=== PATIENT | female | born 1990 | race African-American/Black ===

== ENCOUNTER 2018-08-12 08:52 | Inpatient (IN) ==
[2018-08-12] MEDS ORDERED: BUTORPHANOL 2 MG/ML VIAL IV PRN (09:01)
[2018-08-12] MEDS ORDERED: BUTORPHANOL 1 MG/ML VIAL IV PRN (09:01)
[2018-08-12] MEDS ORDERED: ONDANSETRON 4 MG/2 ML VIAL IV PRN (09:01)
[2018-08-12 09:21] LABS: Basophils % 0.2 % (0.0-0.8); Eosinophils % 0.3 % (0.00-10.9); Hematocrit 32.6 VOL% (35.7-47.0); Immature Granulocytes % 0.7 %; Immature Granulocytes Absolute 0.07 #; Lymphocytes # 1.8 10*3/uL (1.4-4.0); Lymphocytes % 18.3 % (21.3-54.2); Mean Corpuscular HGB Conc 30.7 GM/DL (32-36); Mean Corpuscular Volume 79.1 FL (87-102); Mean Platelet Volume 12.9 FL (9.6-12.0); Monocytes % 5.5 % (1.7-12.7); Platelet Count 213 T/CUMM (130-400); Red Blood Count 4.12 MC/CUMM (3.8-5.5); Red Cell Distribution Width 16.5 % (9.3-17.3); White Blood Count 9.6 T/CUMM (4-12)
[2018-08-12] MEDS: LACTATED RINGERS 1,000 ML IV SCH ×2 (09:25→12:39)
[2018-08-12] MEDS ORDERED: OXYTOCIN/LR 20 UNIT/1,000 ML BAG IV SCH (09:30)
[2018-08-12 09:32] LABS: INR 0.9; PT Patient Result 9.5 SECS; Partial Thromboplastin Time 30.3 SECS (0-40)
[2018-08-12 09:46] LABS: Alanine Aminotransferase 12 U/L (13-56); Albumin 2.7 G/DL (3.4-5.0); Alkaline Phosphatase 219 U/L (45-117); Aspartate Amino Transferase 11 U/L (0-37); Bilirubin,Total < 0.39 MG/DL (0.2-1.0); Blood Urea Nitrogen 7 MG/DL (7-18); Calcium 8.7 MG/DL (8.5-10.1); Glucose 101 MG/DL (74-106); Osmolality,Calculated 270.8 MOS/KG (273-304); Total Protein 7.1 G/DL (6.4-8.3); Uric Acid 3.6 MG/DL (2.6-6.0)
[2018-08-12] MEDS ORDERED: PENICILLIN G POTASSIUM INJ 6,000,000 UNIT in SODIUM CHLORIDE 0.9% 100 ML IV ONE (12:00)
[2018-08-12] MEDS ORDERED: PROMETHAZINE 25 MG/1 ML VIAL IM ONE (12:01)
[2018-08-12] MEDS ORDERED: LACTATED RINGERS 1,000 ML IV ONE (12:01)
[2018-08-12] MEDS ORDERED: hydrOXYzine HCL 25 MG/1 ML VIAL IM PRN ×2 (12:01→19:16)
[2018-08-12] MEDS ORDERED: NALOXONE 0.4 MG/ML VIAL IV PRN (12:01)
[2018-08-12] MEDS ORDERED: diphenhydrAMINE 50 MG/1 ML VIAL IV PRN ×3 (12:01→19:16)
[2018-08-12] MEDS ORDERED: ePHEDrine 50 MG/ML AMP IV PRN (12:01)
[2018-08-12] MEDS ORDERED: FAMOTIDINE 20 MG/2 ML VIAL IV ONE (12:01)
[2018-08-12] MEDS ORDERED: ONDANSETRON 4 MG/2 ML VIAL IV ONE (12:01)
[2018-08-12] MEDS ORDERED: CITRIC ACID/SODIUM CITRATE 30 ML UDCUP PO ONE (12:01)
[2018-08-12] MEDS ORDERED: fentaNYL 2 MCG/ROPIV 0.2% EPID 100 ML EPIDURAL SCH (12:30)
[2018-08-12] MEDS ORDERED: PENICILLIN G POTASSIUM INJ 3,000,000 UNIT in SODIUM CHLORIDE 0.9% 100 ML IV SCH (16:00)
[2018-08-12] MEDS ORDERED: ceFAZolin 3,000 MG in SYRINGE 1 EACH IV ONE (16:15)
[2018-08-12] MEDS ORDERED: OXYTOCIN 10 UNIT/ML VIAL ONE (16:46)
[2018-08-12] MEDS ORDERED: fentaNYL 100 MCG/2 ML VIAL ONE (18:16)
[2018-08-12] MEDS ORDERED: PROPOFOL 200 MG/20 ML VIAL IV ONE (18:16)
[2018-08-12] MEDS ORDERED: ONDANSETRON 4 MG/2 ML VIAL ONE (18:17)
[2018-08-12] MEDS ORDERED: KETAMINE 500 MG/10 ML VIAL ONE (18:17)
[2018-08-12] MEDS ORDERED: ROCURONIUM 100 MG/10 ML VIAL IV ONE (18:17)
[2018-08-12] MEDS ORDERED: PHENYLEPHRINE 1 MG/10 ML SYRINGE IV ONE (18:17)
[2018-08-12] MEDS ORDERED: SUCCINYLCHOLINE 200 MG/10 ML VIAL ONE (18:17)
[2018-08-12] MEDS ORDERED: LIDOCAINE MPF 2% /EPI 20 ML VIAL ONE (18:17)
[2018-08-12] MEDS ORDERED: DEXAMETHASONE 4 MG/1 ML VIAL ONE (18:17)
[2018-08-12] MEDS ORDERED: MIDAZOLAM 2 MG/2 ML VIAL ONE (18:26)
[2018-08-12] MEDS ORDERED: HYDROmorphone 2 MG/1 ML VIAL IV PRN (19:16)
[2018-08-12] MEDS ORDERED: MAGNESIUM SULF DRIP 40 GM/1,000 ML ML IV SCH ×2 (19:30→21:32)
[2018-08-12] MEDS ORDERED: RHO(D) IMMUNE GLOBULIN 300 MCG SYRINGE IM ONE (21:32)
[2018-08-12] MEDS ORDERED: MAGNESIUM SULFATE 1 GM/2 ML VIAL IV ONE (21:32)
[2018-08-12] MEDS ORDERED: SIMETHICONE CHEW 80 MG TABLET PO PRN (21:32)
[2018-08-13] MEDS: ceFAZolin 1,000 MG in SYRINGE 1 EACH IV SCH ×2 (02:00→10:40)
[2018-08-13 03:37] LABS: Basophils % 0.2 % (0.0-0.8); Hematocrit 29.2 VOL% (35.7-47.0); Immature Granulocytes % 0.6 %; Immature Granulocytes Absolute 0.11 #; Lymphocytes # 1.3 10*3/uL (1.4-4.0); Lymphocytes % 6.6 % (21.3-54.2); Mean Corpuscular HGB Conc 30.8 GM/DL (32-36); Mean Corpuscular Volume 78.9 FL (87-102); Mean Platelet Volume 12.6 FL (9.6-12.0); Monocytes % 4.3 % (1.7-12.7); Neutrophils % 88.3 % (38.7-73.9); Platelet Count 230 T/CUMM (130-400); Red Cell Distribution Width 16.4 % (9.3-17.3); White Blood Count 19.2 T/CUMM (4-12)
[2018-08-13] MEDS: DOCUSATE SODIUM 100 MG CAPSULE PO SCH ×3 (03:43→20:04)
[2018-08-13] MEDS: LACTATED RINGERS 1,000 ML IV SCH (03:44)
[2018-08-13] MEDS: IBUPROFEN 800 MG TABLET PO SCH ×2 (07:20→22:17)
[2018-08-13] MEDS: MULTIVITAMIN (PRENATAL) TABLET PO SCH (08:53)
[2018-08-13] MEDS ORDERED: metroNIDAZOLE 500 MG TABLET PO ONE (09:55)
[2018-08-13 18:02] LABS: Basophils % 0.2 % (0.0-0.8); Eosinophils % 0.1 % (0.00-10.9); Hematocrit 27.5 VOL% (35.7-47.0); Hemoglobin 8.4 GM/DL (12.0-16.0); Immature Granulocytes % 0.8 %; Immature Granulocytes Absolute 0.13 #; Lymphocytes # 2.2 10*3/uL (1.4-4.0); Lymphocytes % 12.9 % (21.3-54.2); Mean Corpuscular HGB Conc 30.5 GM/DL (32-36); Mean Corpuscular Volume 79.5 FL (87-102); Mean Platelet Volume 12.5 FL (9.6-12.0); Monocytes % 5.5 % (1.7-12.7); Neutrophils % 80.5 % (38.7-73.9); Platelet Count 220 T/CUMM (130-400); Red Blood Count 3.46 MC/CUMM (3.8-5.5); Red Cell Distribution Width 16.9 % (9.3-17.3)
[2018-08-13] MEDS ORDERED: BENZOCAINE/MENTHOL LOZENGE 18/BOX PO PRN (19:42)
[2018-08-13] MEDS: MAGNESIUM HYDROXIDE SUSP 30 ML UDCUP PO PRN (19:53)
[2018-08-13] MEDS ORDERED: BISACODYL 10 MG SUPP RECTAL PRN (20:25)
[2018-08-14] MEDS: IBUPROFEN 800 MG TABLET PO SCH ×3 (06:11→21:37)
[2018-08-14] MEDS ORDERED: ETONOGESTREL 68 MG IMPLANT SUBCUT ONE (08:10)
[2018-08-14] MEDS: MAGNESIUM HYDROXIDE SUSP 30 ML UDCUP PO PRN (08:57)
[2018-08-14] MEDS: MULTIVITAMIN (PRENATAL) TABLET PO SCH (08:57)
[2018-08-14] MEDS: DOCUSATE SODIUM 100 MG CAPSULE PO SCH ×2 (08:57→20:28)
[2018-08-14] MEDS: ALBUTEROL 1.25 MG/3 ML NEB RESP TX SCH (20:44)
[2018-08-15] MEDS: ALBUTEROL 1.25 MG/3 ML NEB RESP TX SCH ×2 (01:44→08:32)
[2018-08-15] MEDS: IBUPROFEN 800 MG TABLET PO SCH (06:08)
[2018-08-15 08:03] VITALS: BP 155/94
[2018-08-15] MEDS: MULTIVITAMIN (PRENATAL) TABLET PO SCH ×2 (08:26→08:27)
[2018-08-15] MEDS: DOCUSATE SODIUM 100 MG CAPSULE PO SCH (08:28)
[2018-08-15] MEDS ORDERED: LIDOCAINE/PRILOCAINE CREAM 5 GM TUBE TOP STA (08:36)
[2018-08-15] MEDS ORDERED: LIDOCAINE 1%/EPI INJ 20 ML VIAL MISC INJ ONE (08:39)
== END 2018-08-15 11:25 | disposition home or self-care (01) | DRG 540 ==
LOC: N.LD 08:52 → N.OB 08-13 15:37
PROVIDERS: ADMIT Obstetrics & Gynecology; ATTEND Obstetrics & Gynecology
PROC: LDCSECT (ICD-10-PCS; 2018-08-12 16:30)

== ENCOUNTER 2019-01-06 21:53 | Observation (INO) ==
[2019-01-06] MEDS ORDERED: LORazepam 2 MG/1 ML VIAL ONE (22:22)
[2019-01-06] MEDS ORDERED: LORazepam 2 MG/1 ML VIAL IV STA (22:27)
[2019-01-06 23:01] LABS: Monocytes % 6.7 % (1.7-12.7); Red Blood Count 5.04 MC/CUMM (3.8-5.5)
[2019-01-06 23:22] LABS: Basophils % 0.2 % (0.0-0.8); Eosinophils # 0.1 10*3/uL (0.0-0.87); Eosinophils % 1.4 % (0.00-10.9); Hemoglobin 10.8 GM/DL (12.0-16.0); Immature Granulocytes % 0.6 %; Immature Granulocytes Absolute 0.05 #; Lymphocytes # 3.1 10*3/uL (1.4-4.0); Lymphocytes % 33.8 % (21.3-54.2); Mean Corpuscular Volume 71.4 FL (87-102); Neutrophils % 57.3 % (38.7-73.9); Platelet Count 253 T/CUMM (130-400); Red Cell Distribution Width 20.3 % (9.3-17.3); White Blood Count 9.1 T/CUMM (4-12)
[2019-01-06 23:49] LABS: Apearance,Urine CLEAR (Clear); Bacteria,Urine Occasional /HPF (Few); Bilirubin,Urine Negative (Negative); Blood, Urine Negative (Negative); Glucose,Urine (UA) Negative (Negative); Ketones,Urine Negative (Negative); Mucus,Urine Occasional /LPF (Occasional); Nitrite,Urine Negative (Negative); Protein,Urine Negative; RBC,Urine 1 /HPF (0-4); Squamous Epithelial Cell,Urine Occasional /HPF (0-10); Urine Color Yellow (Yellow); Urine Specific Gravity 1.023 (1.001-1.035); WBC,Urine 1 /HPF (0-6)
[2019-01-06 23:51] LABS: Barbiturates Screen,Urine Negative (Negative); Benzodiazepines Screen,Urine Negative (Negative); Cannabinoid Screen,Urine Negative (Negative); Opiate Screen,Urine Negative (Negative); Phencyclidine Screen,Urine Negative (Negative)
[2019-01-07 00:01] LABS: Alanine Aminotransferase 21 U/L (13-56); Albumin 3.7 G/DL (3.4-5.0); Alkaline Phosphatase 135 U/L (45-117); Aspartate Amino Transferase 18 U/L (0-37); Bilirubin,Total < 0.39 MG/DL (0.2-1.0); Blood Urea Nitrogen 16 MG/DL (7-18); Calcium 9.2 MG/DL (8.5-10.1); Estimated Glom Filtration Rate 117 ML/MIN; Glucose 128 MG/DL (74-106); Osmolality,Calculated 279.5 MOS/KG (273-304); Total Protein 8.2 G/DL (6.4-8.3)
[2019-01-07] MEDS ORDERED: ACETAMINOPHEN 325 MG TABLET PO PRN (02:49)
[2019-01-07] MEDS ORDERED: levETIRAcetam 500 MG TABLET PO SCH (09:00)
[2019-01-07] MEDS: METOPROLOL TARTRATE 50 MG TABLET PO SCH ×2 (09:16→21:13)
[2019-01-07] MEDS: ENOXAPARIN 40 MG/0.4 ML SYRINGE SUBCUT SCH (09:17)
[2019-01-07] MEDS: PANTOPRAZOLE 40 MG TABLET PO SCH (15:01)
[2019-01-07] MEDS: levETIRAcetam 500 MG TABLET PO SCH (21:13)
[2019-01-08] MEDS ORDERED: LORazepam 2 MG/1 ML VIAL ONE (04:01)
[2019-01-08] MEDS ORDERED: LORazepam 2 MG/1 ML VIAL IV PRN (04:01)
[2019-01-08 05:44] LABS: Basophils % 0.4 % (0.0-0.8); Eosinophils # 0.1 10*3/uL (0.0-0.87); Eosinophils % 1.5 % (0.00-10.9); Hemoglobin 10.5 GM/DL (12.0-16.0); Immature Granulocytes % 1.1 %; Immature Granulocytes Absolute 0.08 #; Lymphocytes % 26.6 % (21.3-54.2); Mean Corpuscular Volume 71.6 FL (87-102); Mean Platelet Volume 11.1 FL (9.6-12.0); Neutrophils % 64.4 % (38.7-73.9); Platelet Count 348 T/CUMM (130-400); Red Blood Count 4.89 MC/CUMM (3.8-5.5); White Blood Count 7.4 T/CUMM (4-12)
[2019-01-08 05:58] LABS: Calcium 8.8 MG/DL (8.5-10.1); Osmolality,Calculated 277.5 MOS/KG (273-304)
[2019-01-08 06:39] LABS: Anisocytosis 1+; Ovalocytes 1+; Platelet Estimate Normal; Target Cells 1+
[2019-01-08] MEDS: METOPROLOL TARTRATE 50 MG TABLET PO SCH (09:55)
[2019-01-08] MEDS: PANTOPRAZOLE 40 MG TABLET PO SCH (09:55)
[2019-01-08] MEDS: levETIRAcetam 500 MG TABLET PO SCH (09:55)
[2019-01-08] MEDS: ENOXAPARIN 40 MG/0.4 ML SYRINGE SUBCUT SCH (09:55)
[2019-01-08 11:19] VITALS: BP 132/80
== END 2019-01-08 15:33 | disposition home or self-care (01) ==
LOC: EDUNIT# → EDBD → N.EDINP 21:53 → N.ED 21:53 → N.3E 01-07 03:28
PROVIDERS: ADMIT Emergency Medicine; ATTEND Emergency Medicine